=== PATIENT | female | born 1950 | race Caucasian/White ===

== ENCOUNTER 2017-10-25 10:43 | Outpatient (CLI) | payer MEDICARE | END 2017-10-25 10:44 | disposition home or self-care (01) | LOC: BICRAD 10:43 | PROVIDERS: ATTEND Nurse Practitioner Family | DX: R05 Cough (principal) | CPT/HCPCS: 71046 ==

== ENCOUNTER 2018-06-06 14:46 | Outpatient (CLI) | payer MEDICARE ==
--- NOTE | 2018-06-06 15:47 | MMO ---
BILATERAL SCREENING MAMMOGRAM: Date: 06/06/18 COMPARISON: 05/16/17, 04/25/16, 04/24/16, 04/23/15. HISTORY: Annual screening exam. This patient's mammogram was interpreted with the assistance of computer-aided detection. FINDINGS: There are scattered fibroglandular changes of both breasts. Benign calcifications and vascular calcif ications are seen bilaterally. Calcifications all do appear stable as compared to prior studies. IMPRESSION: BIRADS 2: Benign Finding(s) POS: YANDY
== END 2018-06-06 14:47 | disposition home or self-care (01) ==
LOC: SCSMAMMO 14:46
PROVIDERS: ATTEND Family Medicine
DX: Z12.31 Encounter for screening mammogram for malignant neoplasm of breast (principal)
CPT/HCPCS: 77067

== ENCOUNTER 2020-12-14 09:12 | Outpatient (CLI) | payer MEDICARE | END 2020-12-14 09:13 | disposition home or self-care (01) | LOC: CTENTCT 09:12 | PROVIDERS: ATTEND Otolaryngology Plastic Surgery within the Head & Neck | DX: J32.9 Chronic sinusitis, unspecified (principal) | CPT/HCPCS: 70486 ==

== ENCOUNTER 2021-09-27 08:18 | Outpatient (CLI) | payer MEDICARE | END 2021-09-27 08:19 | disposition home or self-care (01) | LOC: RAD 08:18 | PROVIDERS: ATTEND Internal Medicine Critical Care Medicine | DX: R06.00 Dyspnea, unspecified (principal) | CPT/HCPCS: 71046 ==

== ENCOUNTER 2023-05-03 09:39 | Outpatient (CLI) | payer MEDICARE | END 2023-05-03 09:40 | disposition home or self-care (01) | LOC: SCSMRI 09:39 | PROVIDERS: ATTEND Neurological Surgery | DX: M47.26 Other spondylosis with radiculopathy, lumbar region (principal); M50.31 Other cervical disc degeneration, high cervical region; M47.812 Spondylosis without myelopathy or radiculopathy, cervical region; M43.13 Spondylolisthesis, cervicothoracic region; Z98.890 Other specified postprocedural states | CPT/HCPCS: 72040; 72100; 72141; 72148 ==